=== PATIENT | female | born 1990 | race American Indian/Alaskan Native ===

== ENCOUNTER 2017-06-09 19:37 | Emergency (ER) | payer OTHER ==
[2017-06-09 20:36] LABS: Basophils % (Auto) 0.8 % (0.0-1.8); Eosinophils % (Auto) 0.7 % (0.0-4.3); Hematocrit 41.7 % (30.3-42.9); Hemoglobin 13.6 gm/dl (10.1-14.3); Mean Corpuscular HGB Conc 33 % (30-34); Mean Corpuscular Hemoglobin 30 pg (28-32); Mean Corpuscular Volume 92 fl (79-97); Platelet Count 227 K/mm3 (140-440); Red Blood Count 4.52 M/mm3 (3.65-5.03); Red Cell Distribution Width 16.1 % (13.2-15.2); White Blood Count 12.2 K/mm3 (4.5-11.0)
[2017-06-09 20:51] LABS: Alanine Aminotransferase 16 units/L (7-56); Albumin 3.9 g/dL (3.9-5); Albumin/Globulin Ratio 1.4 %; Alkaline Phosphatase 46 units/L (35-129); Anion Gap 16 mmol/L; BUN/Creatinine Ratio 10; Bilirubin,Total < 0.20 mg/dL (0.1-1.2); Blood Urea Nitrogen 10 mg/dL (7-17); Calcium 9.3 mg/dL (8.4-10.2); Carbon Dioxide 27 mmol/L (22-30); Chloride 102.8 mmol/L (98-107); Glucose 117 mg/dL (65-100); Lipase 55 units/L (13-60); Sodium 142 mmol/L (137-145); Total Protein 6.6 g/dL (6.3-8.2)
[2017-06-09 21:07] LABS: Bacteria,Urine 1+ /HPF (Negative); Bilirubin,Urine NEG (Negative); Blood,Urine LG (Negative); Ketones,Urine NEG (Negative); Leukocyte Esterase,Urine LG (Negative); Mucus,Urine FEW /HPF; Nitrite,Urine NEG (Negative); Urobilinogen,Urine < 2.0 mg/dL (<2.0)
--- NOTE | 2017-06-10 03:20 | Cat Scan Report ---
FINAL REPORT EXAM: CT ABDOMEN PELVIS WO CON HISTORY: Pelvic pain. Concern for renal calculi. COMPARISON: None available. TECHNIQUE: Contiguous axial images were obtained. Additional sagittal and coronal reformatted images were obtained. FINDINGS: Lung bases are clear. Tiny hiatal hernia. No calcified gallstones. Liver, spleen, pancreas and adrenal glands are grossly unremarkable. No nephrolithiasis or hydronephrosis. Aorta and IVC normal in caliber. No distal ureteral or urinary bladder calculi. Uterus and ovaries are grossly unremarkable. Trace fluid in the pelvis within physiologic limits. Multiple pelvic phleboliths. These appear to be separate from the distal ureters. The appendix is partially gas-filled and normal in caliber measuring 4-5 millimeters in diameter. There may be a tiny amount of inspissated stool within the proximal appendix. Appendicolith less likely. Moderate stool in the right colon. No focal inflammatory changes the bowel. No bowel obstruction. Lumbar vertebral body heights are preserved. Bony pelvis is grossly intact. There are few prominent but technically not enlarged inguinal lymph nodes likely reactive. IMPRESSION: No obstructive uropathy or urolithiasis. Trace free fluid in the pelvis within physiologic limits. Uterus and ovaries are grossly unremarkable by CT. Multiple pelvic phleboliths which appear to be separate from the distal ureters. Large and small bowel loops normal in caliber. The appendix is normal in caliber. No inflammatory changes the bowel.
--- NOTE | 2017-06-10 03:54 | Emergency Department Report ---
ED Female HPI - General Chief complaint: Abdominal Pain Stated complaint: BACK PAIN Time Seen by Provider: 06/10/17 02:25 Source: patient, family Mode of arrival: Ambulatory Limitations: No Limitations - History of Present Illness Initial comments: This is a 26 y.o. female presenting with abdominal and lower back pain. 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 The pain feels like pressure in her lower abdominal area. She has not tried OTC medications at this time. Denies vomiting, diarrhea, and discharge. MD Complaint: dysuria, pelvic pain -: days(s) (3) Location: suprapubic Radiation: suprapubic Severity: mild Severity scale (0 -10): 0 Quality: aching, other (pressure) Consistency: intermittent Improves with: urination Worsens with: none Are you Now?: No Associated Symptoms: abdominal pain, dysuria. denies: vaginal discharge, vaginal bleeding, nausea/vomiting, fever/chills, headaches, loss of appetite, hematuria, rash, seizure, shortness of breath, syncope, weakness - Related Data Sexually active: No Previous Rx's Medication Instructions Recorded Last Taken Type Phenazopyridine [Pyridium] 200 mg PO TID 2 Days #6 tab 06/10/17 Unknown Rx Sulfamethoxazole/Trimethoprim 1 each PO BID 3 Days #6 tablet 06/10/17 Unknown Rx [Bactrim Ds Tablet] Allergies Allergy/AdvReac Type Severity Reaction Status Date / Time No Known Allergies Allergy Verified 06/09/17 19:51 ED Review of Systems ROS: Stated complaint: BACK PAIN Other details as noted in HPI Constitutional: no symptoms reported, see HPI. denies: chills, diaphoresis, fever, malaise, weakness Respiratory: no symptoms reported, see HPI. denies: cough, orthopnea, shortness of breath, SOB with exertion, SOB at rest, stridor, wheezing Cardiovascular: as per HPI. denies: chest pain, palpitations, dyspnea on exertion, orthopnea, paroxysmal nocturnal dyspnea Genitourinary: as per HPI, urgency, dysuria, frequency. denies: hematuria, discharge, abnormal menses, dyspareunia Psychiatric: as per HPI. denies: anxiety, depression, auditory hallucinations, visual hallucinations, homicidal thoughts, suicidal thoughts ED Past Medical Hx - Past Medical History Previous Medical History?: Yes Additional medical history: overweight - Surgical History Past Surgical History?: No - Social History Smoking Status: Light Tobacco Smoker Substance Use Type: Alcohol - Medications Home Medications: Home Medications Medication Instructions Recorded Confirmed Last Taken Type Phenazopyridine [Pyridium] 200 mg PO TID 2 Days #6 tab 06/10/17 Unknown Rx Sulfamethoxazole/Trimethoprim 1 each PO BID 3 Days #6 tablet 06/10/17 Unknown Rx [Bactrim Ds Tablet] ED Physical Exam - General Limitations: No Limitations General appearance: alert, in no apparent distress - Respiratory Respiratory exam: Present: normal lung sounds bilaterally. Absent: respiratory distress, wheezes, rales, rhonchi, stridor, chest wall tenderness, accessory muscle use, decreased breath sounds, prolonged expiratory - Cardiovascular Cardiovascular Exam: Present: regular rate, normal rhythm, normal heart sounds. Absent: bradycardia, tachycardia, irregular rhythm, systolic murmur, diastolic murmur, rubs, gallop, clicks, JVD, S3, S4 - GI/Abdominal GI/Abdominal exam: Present: soft, normal bowel sounds. Absent: distended, tenderness, guarding, rebound, rigid, diminished bowel sounds, hyperactive bowel sounds, hypoactive bowel sounds, organomegaly, mass, bruit, pulsatile mass , hernia - Back Exam Back exam: Present: normal inspection, full ROM, CVA tenderness (R), CVA tenderness (L). Absent: muscle spasm, paraspinal tenderness, vertebral tenderness, rash noted - Neurological Exam Neurological exam: Present: alert, oriented X3, CN II-XII intact, normal gait. Absent: altered, abnormal gait, motor sensory deficit - Psychiatric Psychiatric exam: Present: normal affect, normal mood. Absent: depressed, agitated, anxious, flat affect, manic, homicidal ideation, suicidal ideation ED Course Vital Signs 06/09/17 19:45 Temperature 98.4 F Pulse Rate 102 H Respiratory 18 Rate Blood Pressure 140/77 [Right] O2 Sat by Pulse 100 Oximetry ED Medical Decision Making - Lab Data Result diagrams: 06/09/17 20:19 06/09/17 20:19 - Radiology Data Radiology results: image reviewed FINDINGS: Lung bases are clear. Tiny hiatal hernia. No calcified gallstones. Liver, spleen, pancreas and adrenal glands are grossly unremarkable. No nephrolithiasis or hydronephrosis. Aorta and IVC normal in caliber. No distal ureteral or urinary bladder calculi. Uterus and ovaries are grossly unremarkable. Trace fluid in the pelvis within physiologic limits. Multiple pelvic phleboliths. These appear to be separate from the distal ureters. The appendix is partially gas-filled and normal in caliber measuring 4-5 millimeters in diameter. There may be a tiny amount of inspissated stool within the proximal appendix. Appendicolith less likely. Moderate stool in the right colon. No focal inflammatory changes the bowel. No bowel obstruction. Lumbar vertebral body heights are preserved. Bony pelvis is grossly intact. There are few prominent but technically not enlarged inguinal lymph nodes likely reactive. IMPRESSION: No obstructive uropathy or urolithiasis. Trace free fluid in the pelvis within physiologic limits. Uterus and ovaries are grossly unremarkable by CT. Multiple pelvic phleboliths which appear to be separate from the distal ureters. Large and small bowel loops normal in caliber. The appendix is normal in caliber. No inflammatory changes the bowel. Critical care attestation.: If time is entered above; I have spent that time in minutes in the direct care of this critically ill patient, excluding procedure time. ED Disposition Clinical Impression: UTI (urinary tract infection) Qualifiers: Urinary tract infection type: acute cystitis Hematuria presence: with hematuria Qualified Code(s): N30.01 - Acute cystitis with hematuria Disposition: - TO HOME OR SELFCARE Is pt being admited?: No Does the pt Need Aspirin: No Condition: Stable Instructions: Abdominal Pain (ED), Urinary Tract Infection in Women (ED) Additional Instructions: Increase fluid intake. Prescriptions: Phenazopyridine [Pyridium] 200 mg PO TID 2 Days #6 tab Sulfamethoxazole/Trimethoprim [Bactrim Ds Tablet] 1 each PO BID 3 Days #6 tablet Referrals: KEVYN MACIAS MD [Primary Care Provider] - 3-5 Days [facility] [Outside] - 3-5 Days [facility] [Outside] - 3-5 Days Forms: Work/School Release Form(ED) Time of Disposition: 04:33 Print Language: [place]ICAN CITIZEN
[2017-06-10 04:42] VITALS: BP 137/76
== END 2017-06-10 04:42 | disposition home or self-care (01) ==
LOC: ED 19:37
DX: N30.01 Acute cystitis with hematuria (principal); F17.200 Nicotine dependence, unspecified, uncomplicated
CPT/HCPCS: 36415; 74176; 80053; 81001; 83690; 84703; 85025; 99284

== ENCOUNTER 2018-04-02 06:18 | Emergency (ER) | payer SELFPAY ==
[2018-04-02 06:31] VITALS: BP 161/91
--- NOTE | 2018-04-02 06:47 | Emergency Department Report ---
ED ENT HPI - General Chief complaint: Dental/Oral Stated complaint: TOOTH HURT Time Seen by Provider: 04/02/18 06:32 Source: patient Mode of arrival: Ambulatory Limitations: No Limitations - History of Present Illness Initial comments: 27-year-old -[place] female comes in complaining of left sided tooth ache that radiates to the ear. Patient denies any fever chills she denies any facial swelling. She reports that this been going on for 1 day. She reports she's been taking 3 partners have taken 6 without any resolution of pain. She denies any known drug allergies currently takes no medications on a daily basis just has a past medical history of overweight. MD complaint: tooth pain -: days(s) (1) Location: tooth # (18) Severity: severe Severity scale (0 -10): 10 Quality: stabbing, aching Consistency: constant Improves with: none Worsens with: none Associated Symptoms: gum swelling, toothache - Related Data Previous Rx's Medication Instructions Recorded Last Taken Type Phenazopyridine [Pyridium] 200 mg PO TID 2 Days #6 tab 06/10/17 Unknown Rx Sulfamethoxazole/Trimethoprim 1 each PO BID 3 Days #6 tablet 06/10/17 Unknown Rx [Bactrim Ds Tablet] Acetaminophen/Codeine [Tylenol 1 tab PO Q6H PRN #8 tab 04/02/18 Unknown Rx /Codeine # 3 tab] Ibuprofen [Motrin 600 MG tab] 600 mg PO Q8H PRN #30 04/02/18 Unknown Rx Penicillin V Potassium 500 mg PO QID #40 tablet 04/02/18 Unknown Rx Allergies Allergy/AdvReac Type Severity Reaction Status Date / Time No Known Allergies Allergy Verified 06/09/17 19:51 ED Dental HPI - General Chief complaint: Dental/Oral Stated complaint: TOOTH HURT Time Seen by Provider: 04/02/18 06:32 Source: patient Mode of arrival: Ambulatory Limitations: No Limitations - Related Data Previous Rx's Medication Instructions Recorded Last Taken Type Phenazopyridine [Pyridium] 200 mg PO TID 2 Days #6 tab 06/10/17 Unknown Rx Sulfamethoxazole/Trimethoprim 1 each PO BID 3 Days #6 tablet 06/10/17 Unknown Rx [Bactrim Ds Tablet] Acetaminophen/Codeine [Tylenol 1 tab PO Q6H PRN #8 tab 04/02/18 Unknown Rx /Codeine # 3 tab] Ibuprofen [Motrin 600 MG tab] 600 mg PO Q8H PRN #30 04/02/18 Unknown Rx Penicillin V Potassium 500 mg PO QID #40 tablet 04/02/18 Unknown Rx Allergies Allergy/AdvReac Type Severity Reaction Status Date / Time No Known Allergies Allergy Verified 06/09/17 19:51 ED Review of Systems ROS: Stated complaint: TOOTH HURT Other details as noted in HPI Comment: All other systems reviewed and negative ENT: dental pain ED Past Medical Hx - Past Medical History Previous Medical History?: Yes Additional medical history: overweight - Surgical History Past Surgical History?: No - Social History Smoking Status: Never Smoker Substance Use Type: None - Medications Home Medications: Home Medications Medication Instructions Recorded Confirmed Last Taken Type Phenazopyridine [Pyridium] 200 mg PO TID 2 Days #6 tab 06/10/17 Unknown Rx Sulfamethoxazole/Trimethoprim 1 each PO BID 3 Days #6 tablet 06/10/17 Unknown Rx [Bactrim Ds Tablet] Acetaminophen/Codeine [Tylenol 1 tab PO Q6H PRN #8 tab 04/02/18 Unknown Rx /Codeine # 3 tab] Ibuprofen [Motrin 600 MG tab] 600 mg PO Q8H PRN #30 04/02/18 Unknown Rx Penicillin V Potassium 500 mg PO QID #40 tablet 04/02/18 Unknown Rx ED Physical Exam - General Limitations: No Limitations General appearance: alert, in no apparent distress - Head Head exam: Present: atraumatic, normocephalic - Eye Eye exam: Present: EOMI - Expanded ENT Exam Expanded Teeth exam: Present: dental tenderness # (18), gingival enlargement ED Course Vital Signs 04/02/18 06:29 Temperature 98 F Pulse Rate 79 Respiratory 18 Rate Blood Pressure 161/91 O2 Sat by Pulse 100 Oximetry ED Medical Decision Making - Medical Decision Making Patient has been evaluated by this provider in fast track. Ibuprofen given for pain management Patient be discharged home on ibuprofen and Tylenol 3. She'll also be discharged home on penicillin V 500 mg 4 times a day for 10 days. Referral to dentist Critical care attestation.: If time is entered above; I have spent that time in minutes in the direct care of this critically ill patient, excluding procedure time. ED Disposition Clinical Impression: Dental abscess Disposition: DC- TO HOME OR SELFCARE Is pt being admited?: No Does the pt Need Aspirin: No Condition: Stable Instructions: Dental Abscess (ED) Additional Instructions: Please complete antibiotics as prescribed. Please take pain medication as needed. It is very important for her to follow-up with the dentist as this will continue to come back if not treated. Prescriptions: Acetaminophen/Codeine [Tylenol /Codeine # 3 tab] 1 tab PO Q6H PRN #8 tab PRN Reason: Pain , Severe (7-10) Ibuprofen [Motrin 600 MG tab] 600 mg PO Q8H PRN #30 PRN Reason: Pain , Severe (7-10) Penicillin V Potassium 500 mg PO QID #40 tablet Referrals: [facility] [Outside] - 3-5 Days [facility] [Outside] - 3-5 Days [facility] [Outside] - 3-5 Days [facility] [Outside] - 3-5 Days Forms: Work/School Release Form(ED)
== END 2018-04-02 06:54 | disposition home or self-care (01) ==
LOC: ED 06:18
DX: K04.7 Periapical abscess without sinus (principal); E66.3 Overweight
CPT/HCPCS: 99282

== ENCOUNTER 2021-03-07 14:16 | Emergency (ER) | payer SELFPAY ==
[2021-03-07 14:31] VITALS: BP 148/78
[2021-03-07] MEDS ORDERED: SODIUM CHLORIDE 0.9% 1000 ML 1,000 ML IV ONE (14:40)
[2021-03-07] MEDS ORDERED: ONDANSETRON 4 MG/2 ML INJ IV ONE (14:40)
--- NOTE | 2021-03-07 14:45 | Emergency Department Report ---
ED General Adult HPI - General Chief complaint: Nausea/Vomiting/Diarrhea Stated complaint: VOMITING HEADACHE Time Seen by Provider: 03/07/21 14:40 Source: patient Mode of arrival: Ambulatory Limitations: No Limitations - History of Present Illness Initial comments: Patient is 30 years old female with no significant past medical history. Patient presented to the ER complaining of sudden onset of nausea, vomiting and diarrhea. Patient also stated that she has been having fever, chills, cough and shortness of breath. Patient stated that she did not receive COVID-19 vaccine. - Related Data Previous Rx's Medication Instructions Recorded Last Taken Type Phenazopyridine [Pyridium] 200 mg PO TID 2 Days #6 tab 06/10/17 Unknown Rx Sulfamethoxazole/Trimethoprim 1 each PO BID 3 Days #6 tablet 06/10/17 Unknown Rx [Bactrim Ds Tablet] Acetaminophen/Codeine [Tylenol 1 tab PO Q6H PRN #8 tab 04/02/18 Unknown Rx /Codeine # 3 tab] Ibuprofen [Motrin 600 MG tab] 600 mg PO Q8H PRN #30 04/02/18 Unknown Rx Penicillin V Potassium 500 mg PO QID #40 tablet 04/02/18 Unknown Rx Allergies Allergy/AdvReac Type Severity Reaction Status Date / Time No Known Allergies Allergy Verified 03/07/21 14:28 ED Review of Systems ROS: Stated complaint: VOMITING HEADACHE Other details as noted in HPI Comment: All other systems reviewed and negative Constitutional: chills, fever Respiratory: cough, SOB with exertion (Like we can do) Cardiovascular: denies: chest pain, palpitations Gastrointestinal: nausea, vomiting, diarrhea (Human). denies: abdominal pain Musculoskeletal: denies: back pain Neurological: weakness. denies: headache, numbness, paresthesias, confusion, abnormal gait ED Past Medical Hx - Past Medical History Previous Medical History?: No Additional medical history: overweight - Surgical History Past Surgical History?: No - Social History Smoking Status: Current Every Day Smoker Substance Use Type: Marijuana - Medications Home Medications: Home Medications Medication Instructions Recorded Confirmed Last Taken Type Phenazopyridine [Pyridium] 200 mg PO TID 2 Days #6 tab 06/10/17 Unknown Rx Sulfamethoxazole/Trimethoprim 1 each PO BID 3 Days #6 tablet 06/10/17 Unknown Rx [Bactrim Ds Tablet] Acetaminophen/Codeine [Tylenol 1 tab PO Q6H PRN #8 tab 04/02/18 Unknown Rx /Codeine # 3 tab] Ibuprofen [Motrin 600 MG tab] 600 mg PO Q8H PRN #30 04/02/18 Unknown Rx Penicillin V Potassium 500 mg PO QID #40 tablet 04/02/18 Unknown Rx ED Physical Exam - General Limitations: No Limitations General appearance: alert, in no apparent distress - Head Head exam: Present: atraumatic, normocephalic, normal inspection - Eye Eye exam: Present: normal appearance, PERRL - ENT ENT exam: Present: normal exam, normal orophraynx, mucous membranes moist - Neck Neck exam: Present: normal inspection, full ROM. Absent: tenderness, meningismus - Respiratory Respiratory exam: Present: normal lung sounds bilaterally - Cardiovascular Cardiovascular Exam: Present: regular rate, normal rhythm, normal heart sounds - GI/Abdominal GI/Abdominal exam: Present: soft, normal bowel sounds. Absent: distended, tenderness, guarding, rebound, rigid, organomegaly, mass, bruit, pulsatile mass, hernia - Extremities Exam Extremities exam: Present: normal inspection, full ROM, normal capillary refill. Absent: tenderness, pedal edema, joint swelling, calf tenderness - Back Exam Back exam: Present: normal inspection, full ROM. Absent: CVA tenderness (R), CVA tenderness (L) - Neurological Exam Neurological exam: Present: alert, oriented X3, CN II-XII intact, normal gait, reflexes normal. Absent: motor sensory deficit - Psychiatric Psychiatric exam: Present: normal mood - Skin Skin exam: Present: warm, intact, normal color ED Course Vital Signs 03/07/21 03/07/21 14:24 16:37 Temperature 99.1 F Pulse Rate 81 Respiratory 19 18 Rate Blood Pressure 148/78 O2 Sat by Pulse 100 Oximetry ED Medical Decision Making - Lab Data Result diagrams: 03/07/21 14:56 03/07/21 14:56 - Radiology Data Radiology results: report reviewed - Medical Decision Making Patient is 30 years old female with no significant past medical history. Patient presented to the ER complaining of sudden onset of nausea, vomiting and diarrhea. Patient also stated that she has been having fever, chills, cough and shortness of breath. Patient stated that she did not receive COVID-19 vaccine. Patient received normal saline, Zofran. Labs reviewed and is unremarkable. Patient stated that she is having a headache. Patient received Tylenol and had CT brain that came back negative for acute finding. No clinical evidence or laboratory evidence of meningitis. Chest x-ray is unremarkable also. Patient stated that she is feeling much better. Patient given prescription for Zofran. Patient also advised to self quarantine and get a COVID-19 test as soon as possible. Patient advised to return to the ER if she develop any new symptoms. Patient also advised to follow-up with her primary doctor in the next 2 to 3 days. Critical care attestation.: If time is entered above; I have spent that time in minutes in the direct care of this critically ill patient, excluding procedure time. ED Disposition Clinical Impression: Acute nausea with nonbilious vomiting, Acute headache, Suspected COVID-19 virus infection Disposition: 01 HOME / SELF CARE / HOMELESS Is pt being admited?: No Condition: Stable Instructions: Nausea and Vomiting, Adult, [id number], COVID-19 Frequently Asked Questions Referrals: PRIMARY CARE, [Primary Care Provider] - 3-5 Days
[2021-03-07 16:06] LABS: Alanine Aminotransferase 47 units/L (7-56); Albumin 3.9 g/dL (3.9-5); BUN/Creatinine Ratio 7; Blood Urea Nitrogen 7 mg/dL (7-17); Calcium 9.4 mg/dL (8.4-10.2); Hemolysis Index 58
[2021-03-07 16:20] LABS: Bilirubin,Direct < 0.2 mg/dL (0-0.2)
[2021-03-07 16:25] LABS: Basophils # (Auto) 0.1 K/mm3 (0.0-0.1); Basophils % (Auto) 0.7 % (0.0-1.8); Eosinophils # (Auto) 0.4 K/mm3 (0.0-0.4); Eosinophils % (Auto) 4.3 % (0.0-4.3); Hematocrit 39.5 % (30.3-42.9); Hemoglobin 13.1 gm/dl (10.1-14.3); Lymphocytes # (Auto) 0.5 K/mm3 (1.2-5.4); Lymphocytes % (Auto) 6.5 % (13.4-35.0); Mean Corpuscular HGB Conc 33 % (30-34); Mean Corpuscular Volume 95 fl (79-97); Monocytes # (Auto) 0.8 K/mm3 (0.0-0.8); Monocytes % (Auto) 9.7 % (0.0-7.3); Platelet Count 235 K/mm3 (140-440); Red Blood Count 4.16 M/mm3 (3.65-5.03); Red Cell Distribution Width 16.7 % (13.2-15.2)
[2021-03-07] MEDS ORDERED: ACETAMINOPHEN 500 MG TAB PO ONE (16:26)
--- NOTE | 2021-03-07 16:39 | XRay Report ---
CHEST 2 VIEWS INDICATION / CLINICAL INFORMATION: Shortness of breath STUDY TIME: 1629 COMPARISON: None available. FINDINGS: SUPPORT DEVICES: None. HEART / MEDIASTINUM: No significant abnormality. LUNGS / PLEURA: No significant pulmonary or pleural abnormality. No pneumothorax. ADDITIONAL FINDINGS: No significant additional findings. Signer Name: Yovanny Combs MD Signed: 03/07/2021 4:34 PM Workstation Name: [id number]
--- NOTE | 2021-03-07 17:41 | Cat Scan Report ---
CT head/brain wo con INDICATION: headache/nausea and vomiting X3DAYS. TECHNIQUE: All CT scans at this location are performed using CT dose reduction for ALARA by means of automated e xposure control. COMPARISON: None available. FINDINGS: There is no evidence of hemorrhage, hydrocephalus, brain edema, or mass effect/mass lesion. There is overall normal brain formation and brain volume for the patient's age. Ventricular and cisternal/sulc al size is normal for age. The included paranasal sinuses and mastoid air cells are clear. The orbits appear unremarkable. IMPRESSION: 1. No acute intracranial abnormality. Signer Name: Andre Andrews MD Signed: 03/07/2021 5:37 PM Workstation Name: [id number]
[2021-03-07 17:49] LABS: Bilirubin,Urine NEG (Negative); Blood,Urine NEG (Negative); Color,Urine Yellow (Yellow); Mucus,Urine 2+ /HPF; Protein,Urine <15 mg/dL mg/dL (Negative); Urobilinogen,Urine < 2.0 mg/dL (<2.0)
== END 2021-03-07 18:12 | disposition home or self-care (01) ==
LOC: ED 14:16
DX: R11.2 Nausea with vomiting, unspecified (principal); R51.9 Headache, unspecified; Z20.822 Contact with and (suspected) exposure to COVID-19; F17.200 Nicotine dependence, unspecified, uncomplicated; F12.90 Cannabis use, unspecified, uncomplicated; Z79.899 Other long term (current) drug therapy
CPT/HCPCS: 36415; 70450; 71046; 80048; 80076; 81001; 83690; 84703; 85025; 96374; 99284; J2405; J7030